=== PATIENT | male | born 1975 | race Caucasian/White ===

== ENCOUNTER 2019-02-08 22:59 | Emergency (ER) | payer OTHER ==
[~2019-02-08] VITALS: Ht 9 cm; Wt 99.8 kg
[2019-02-08 22:59] VITALS: BP 142/78
--- NOTE | 2019-02-08 23:08 | ED.ADGEN ---
Past History Past Medical History: Bronchitis Adult General Chief Complaint Chief Complaint ".... I am been sick two weeks with this cough.. it is to the point .. I can't sleep.. my and daughter.. has been sick 3 weeks... they put my daughter on antibiotics.. I go out to [place] this next week.. 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 . Patient also complaining congestion and drainage, Family members daughter and have also been sick with similar symptoms for the past 3 weeks. Reportedly daughter was recently started on antibiotics for her cough. Patient is normally healthy. Up-to-date with vaccinations. No recent travel. Patient is due to be signed to moderate in [place]. Review of Systems Review of Systems Constitutional: History of fever or chills [] Eyes: Denies change in visual acuity, redness, or eye pain [] HENT: History of nasal congestion and sore throat [] Respiratory: History of cough and wheezing] Cardiovascular: No additional information not addressed in HPI [] GI: Denies abdominal pain, nausea, vomiting, bloody stools or diarrhea [] : Denies dysuria or hematuria [] Musculoskeletal: Denies back pain or joint pain [] Integument: Denies rash or skin lesions [] Neurologic: Denies headache, focal weakness or sensory changes [] Endocrine: Denies polyuria or polydipsia [] All other systems were reviewed and found to be within normal limits, except as documented in this note. Family History Family History and daughter upper respiratory infection and cough Current Medications Current Medications Current Medications Medications (Trade) Dose Ordered Sig/Breezy Start Time Stop Time Status Last Admin Dose Admin Albuterol Sulfate (Ventolin Hfa Inhaler) 2 puff 1X ONCE 02/08/19 23:45 02/09/19 00:03 DC 02/08/19 23:45 2 PUFF Azithromycin (Zithromax) 500 mg 1X ONCE 02/08/19 23:45 02/09/19 00:03 DC 02/08/19 23:55 500 MG Prednisone (Prednisone) 50 mg 1X ONCE 02/08/19 23:45 02/09/19 00:03 DC 02/08/19 23:55 50 MG Allergies Allergies Allergies Coded Allergies Type Severity Reaction Last Updated Verified No Known Drug Allergies 02/09/19 No Physical Exam Physical Exam Constitutional: Well developed, well nourished, moderate acute distress, non- toxic appearance. [] HENT: Normocephalic, atraumatic, bilateral external ears normal, oropharynx moist, ejected pharynx, no oral exudates, nose swollen turbinates and clear rhinorrhea Eyes: PERRLA, EOMI, conjunctiva normal, no discharge. [] Neck: Normal range of motion, no tenderness, supple, no stridor. [] Cardiovascular:Heart rate regular rhythm, no murmur [] Lungs & Thorax: Bilateral breath sounds equal apex with scattered wheezes throughout auscultation [] Abdomen: Bowel sounds normal, soft, no tenderness, no masses, no pulsatile masses. [] Skin: Warm, dry, no erythema, no rash. [] Back: No tenderness, no CVA tenderness. [] Extremities: No tenderness, no cyanosis, no clubbing, ROM intact, no edema. [] No cording in legs. Neurologic: Alert and oriented X 3, normal motor function, normal sensory function, no focal deficits noted. [] Psychologic: Affect normal, judgement normal, mood normal. [] Current Patient Data Vital Signs Vital Signs Date Time Temp Pulse Resp B/P (MAP) Pulse Ox O2 Delivery O2 Flow Rate FiO2 02/08/19 23:49 95 Room Air 02/08/19 22:59 98.7 75 16 Lab Results Laboratory Tests Test 02/08/19 23:40 Influenza Type A (Rapid) Negative (NEGATIVE) Influenza Type B (Rapid) Negative (NEGATIVE) Group A Streptococcus Rapid Negative (NEGATIVE) EKG EKG [] Radiology/Procedures Radiology/Procedures [][address] [address] IMAGING REPORT Signed PATIENT: AZIZA HAMEED ACCOUNT: [id number] : 1975 LOCATION: ER AGE: 43 SEX: M EXAM STATUS: REG ER ORD. PHYSICIAN: ROMERO BLANCO MD REASON: cough, fever x2 weeks PROCEDURE: CHEST PA & LATERAL PA and lateral chest. HISTORY: Cough, fever PA and lateral views were taken of the chest. Lungs are free of infiltrates. Heart is normal in size. There is no pleural effusion. IMPRESSION: 1. No acute chest disease. Electronically signed by: Tyron Zepeda MD (02/09/2019 12:29 AM) [facility] DICTATED AND SIGNED BY: TYRON ZEPEDA MD DATE: 02/09/19 0029 CC: ROMERO BLANCO MD; PCP,NO ~ Course & Med Decision Making Course & Med Decision Making Pertinent Labs and Imaging studies reviewed. (See chart for details). Patient take Tylenol and ibuprofen as needed for pain. May take Vicoprofen 2 tablets at night for discomfort and cough suppression. Benadryl 25-50 mg 4 times a day. Patient take prednisone 50 mg day for. Patient take his Zithromax 250 mg a day. Patient uses MDI 2 puffs 4 times a day. Patient follow-up primary care. Patient return if any concerns. [] Final Impression Final Impression 1. Upper respiratory infection 2. Bronchitis[] Dragon Disclaimer Dragon Disclaimer This electronic medical record was generated, in whole or in part, using a voice recognition dictation system. Dragon Disclaimer This chart was dictated in whole or in part using Voice Recognition software in a busy, high-work load, and often noisy Emergency Department environment. It may contain unintended and wholly unrecognized errors or omissions. ROMERO BLANCO MD Feb 08, 2019 23:08
[2019-02-08] MEDS ORDERED: DIPH25CA58 PO (23:40)
[2019-02-08] MEDS ORDERED: AZIT250T PO (23:40)
[2019-02-08] MEDS ORDERED: HYDR-1179 PO (23:40)
[2019-02-08] MEDS ORDERED: PRED50TA PO (23:40)
[2019-02-08] MEDS ORDERED: AZITHROMYCIN 250 MG TABLET. PO ONE (23:45)
[2019-02-08] MEDS ORDERED: ALBUTEROL SULFATE 8GM INHALER. INH ONE (23:45)
[2019-02-08] MEDS ORDERED: predniSONE 10 MG TABLET PO ONE (23:45)
--- NOTE | 2019-02-09 00:32 | RAD ---
PA and lateral chest. HISTORY: Cough, fever PA and lateral views were taken of the chest. Lungs are free of infiltrates. Heart is normal in size. There is no pleural effusion. IMPRESSION: 1. No acute chest disease. Electronically signed by: Tyron Stout MD (02/09/2019 12:29 AM) [facility]
[2019-02-09 01:27] LABS: INFLUENZA A PATIENT NEGATIVE (NEGATIVE); INFLUENZA B PATIENT NEGATIVE (NEGATIVE)
== END 2019-02-09 00:45 | disposition home or self-care (01) ==
LOC: ER 22:59
DX: J06.9 Acute upper respiratory infection, unspecified (principal); J40 Bronchitis, not specified as acute or chronic
CPT/HCPCS: 71046; 87070; 87804; 87880; 94640; 99285; J0456; J7512; J7613